=== PATIENT | male | born 1985 | race Caucasian/White ===

== ENCOUNTER 2020-03-12 00:12 | Emergency (ER) | payer OTHER ==
[~2020-03-12] VITALS: Ht 188 cm; Wt 75.0 kg
--- NOTE | 2020-03-12 01:06 | RAD ---
CT HEAD WO CONTRAST Date: 03/12/2020 12:39 AM Clinical Indication: Reason: TRAUMA, pain: Comparison: None. Technique: 5 mm axial tomographic images were obtained of the head without contrast. These were viewed on brain and bone windows. One or more of the following dose reduction techniques were utilized: Automated exposure control (AEC), Adjustment of mA and/or kV according to patient size, Use of iterative reconstruction technique such as ASiR, CT scan done according to ALARA and image gently/image wisely Findings: The brain parenchyma is normal in attenuation. No intra- or extra-axial mass or fluid collection. No acute hemorrhage. The ventricles are normal in size, shape, and morphology. The garibay-white matter junction is normal. The subarachnoid cisterns are patent. The visualized paranasal sinuses are normal. The visualized portions of the orbits and globes are normal. The mastoid air cells are clear. The nursing services manager topogram shows no lytic lesion or fracture. Right frontal scalp swelling. Impression: No acute intracranial process. Electronically signed by: Rd Mcnamara MD (03/12/2020 1:03 AM) [facility]
--- NOTE | 2020-03-12 01:17 | PHYS DOC ---
Past Medical History Past Medical History: GERD, Hepatitis Additional Past Medical Histor: hep c, lipoma of left shoulder Past Surgical History: No Surgical History Smoking Status: Never Smoker Alcohol Use: None General Adult EDM: Chief Complaint: SYNCOPE HPI: HPI: Patient is a 35 year old male presenting to the ED with a chief complaint of head injury. Patient states that he has a history of syncope and today had a syncopal episode and hit the top of the toilet. Patient has a laceration about the right eyebrow which is vertical. Patient states that tetanus shot is up-to-date. Patient denies fever, chills, nausea, vomiting, chest pain, shortness of breath. Review of Systems: Review of Systems: Constitutional: Denies fever or chills. [] Eyes: Denies change in visual acuity. [] HENT: Denies nasal congestion or sore throat. [] Respiratory: Denies cough or shortness of breath. [] Cardiovascular: Denies chest pain or edema. [] Musculoskeletal: Denies back pain or joint pain. [] Integument: Laceration to his forehead Heart Score: Risk Factors: Risk Factors: DM, Current or recent (<one month) smoker, HTN, HLP, family history of CAD, obesity. Risk Scores: Score 0 - 3: 2.5% MACE over next 6 weeks - Discharge Home Score 4 - 6: 20.3% MACE over next 6 weeks - Admit for Clinical Observation Score 7 - 10: 72.7% MACE over next 6 weeks - Early Invasive Strategies Allergies: Allergies: Allergies Coded Allergies Type Severity Reaction Last Updated Verified Penicillins Allergy Severe anaphylaxis 03/12/20 Yes Physical Exam: PE: Constitutional: Well developed, well nourished, no acute distress, non-toxic appearance. [] HENT: 4 cm laceration which is vertical about the right eyebrow Eyes: EOMI Neck: Normal range of motion Respiratory: Given 1 no respiratory distress Extremities: No tenderness, ROM intact Neurologic: Alert and oriented X 3 Current Patient Data: Vital Signs: Vital Signs Date Time Temp Pulse Resp B/P (MAP) Pulse Ox O2 Delivery O2 Flow Rate FiO2 03/12/20 00:31 98.4 61 16 133/85 (101) 96 Room Air 98.4 EKG: EKG: [] Radiology/Procedures: Radiology/Procedures: [] Impression: CT HEAD Impression: No acute intracranial process. Course & Med Decision Making: Course & Med Decision Making Pertinent Labs reviewed. (See chart for details) CT head shows no acute intracranial process. Wound is closed with 7 sutures. Tetanus updated in the ER. Sutures to be removed in 7 days Discussed results and plan of care with patient. Patient is instructed to follow up with PCP in one to 2 days. Appropriate discharge instructions given to patient to return to the ED or to seek immediate medical evaluation. Patient is instructed to return to the ED if symptoms worsen or if any concerns. Dragon Disclaimer: Dragon Disclaimer: This electronic medical record was generated, in whole or in part, using a voice recognition dictation system. Departure Departure Impression: Primary Impression: Head injury Additional Impression: Forehead laceration Disposition: HOME, SELF-CARE Condition: STABLE Referrals: UNKNOWN PCP NAME (PCP) Patient Instructions: Head Injury, Adult, Laceration Care, Adult Additional Instructions: Sutures to be removed in 7 to 10 days. Keep wound clean and dry. Discussed results and plan of care with patient. Patient is instructed to follow up with PCP in one to 2 days. Appropriate discharge instructions given to patient to return to the ED or to seek immediate medical evaluation. Patient is instructed to return to the ED if symptoms worsen or if any concerns. Justicifation of Admission Dx: Justifications for Admission: Justification of Admission Dx: No Laceration/Wound Repair Laceration/Wound Repair : Wound Location: head Wound Length (cm): 4 Wound Explored: clean Betadine Prep?: Yes Anesthesia: Lidocaine w/ Epi Volume Anesthetic (ccs): 4 Wound Debrided: minimal Wound Repaired With: sutures Suture Size/Type: 5:0 Number of Sutures: 7 Progress Patient tolerated procedure without any BOB ZURITA DO Mar 12, 2020 01:17
[2020-03-12] MEDS ORDERED: LIDOCAINE 2% 20 ML VIAL. ONE (01:18)
[2020-03-12] MEDS ORDERED: TETANUS AND DIPHTHERIA TOX/PF 0.5 ML DISP.SYRIN. VAX IM ONE (03:00)
[2020-03-12] MEDS ORDERED: BACITRACIN TOPICAL OINT PACKET. TP ONE (03:00)
[2020-03-12 03:30] VITALS: BP 128/68
== END 2020-03-12 03:41 | disposition home or self-care (01) ==
LOC: EEVIPCON 00:12 → ER 00:12
DX: S01.111A Laceration without foreign body of right eyelid and periocular area, initial encounter (principal); R55 Syncope and collapse; K21.9 Gastro-esophageal reflux disease without esophagitis; K73.9 Chronic hepatitis, unspecified; Z88.0 Allergy status to penicillin; W22.8XXA Striking against or struck by other objects, initial encounter; Y93.89 Activity, other specified; Y92.89 Other specified places as the place of occurrence of the external cause; Y99.8 Other external cause status
CPT/HCPCS: 12013; 70450; 90471; 90714; 99285

== ENCOUNTER → 2020-03-21 | Outpatient (CLI) | payer OTHER ==
[2020-03-12 03:30] VITALS: BP 128/68
[~2020-03-21] MED LIST: GADOTERATE 7.5 MMOL/15ML VIAL. IVP ONE
--- NOTE | 2020-03-21 15:26 | RAD ---
EXAM: MRI left shoulder With and without IV contrast DATE: 03/21/2020 1:00 PM COMPARISON: None INDICATION: PALPABLE MASS ON ANTERIOR SHOULDER, EXPANDING IN SIZE OVER LAST YEAR TECHNIQUE: Multiplanar, multisequence MRI of the left shoulder was performed before and after the administration of IV contrast. FINDINGS: Mild AC joint degenerative change. Subacromial-subdeltoid bursal fluid likely bursitis. Type II acromion. Trace subacromial and subdeltoid bursal fluid likely bursitis. Increased signal within the distal supraspinatus and infraspinous tendon likely mild tendinosis. Rotator cuff muscle signal and bulk without fatty atrophy. Fluid cleft is seen extending to the posterior labrum suspicious for nondisplaced labral tear, incompletely assessed on this nonarthrographic study. The intra-articular and extra articular long head biceps tendon are intact, normal in signal and morphology. Anterior to the left AC joint, there is a T1 hyperintense lesion measuring 3.9 x 1.5 x 5.1 cm with fat suppression on the fat-suppressed images, without discrete enhancement accounting for edge of field artifacts. Articular cartilage is grossly preserved. No fracture or osteonecrosis. IMPRESSION: 1. A 5.1 cm soft tissue lesion anterior to the AC joint is most consistent with lipoma without internal thick septations or nodularity. 2. Small fluid cleft extending through the posterior labrum likely represents a nondisplaced labral tear although as prominent as a labral recess would have similar appearance 3. Small volume subacromial-subdeltoid bursal fluid likely bursitis. Electronically signed by: Eligio Rush MD (03/21/2020 3:23 PM) [id number]
== END | disposition home or self-care (01) ==
LOC: EDUNIT# 11:00 → EDBD 11:00 → MRI 13:13
PROVIDERS: ATTEND Preventive Medicine Occupational Medicine
DX: M19.012 Primary osteoarthritis, left shoulder (principal); R22.32 Localized swelling, mass and lump, left upper limb
CPT/HCPCS: 73223; A9575